=== PATIENT | female | born 1950 | race Caucasian/White ===

== ENCOUNTER 2019-02-14 04:43 | Emergency (ER) | payer MEDICAID, MEDICARE ==
[2019-02-14] MEDS ORDERED: NS 0.9% 1000 ML** 1,000 ML IV ONE (05:06)
[2019-02-14] MEDS ORDERED: Meclizine TAB* 12.5 MG PO ONE (05:07)
--- NOTE | 2019-02-14 05:13 | ED ---
Dizziness - HPI Summary HPI Summary: The pt is a 69 y/o F presenting to [facility] with her and a CC of dizziness , described as room spinning, starting 02/13/19 and worsening at 0300 02/14/19. She stated that she was having dizziness episodes during the day. She woke up at 0300 and felt nauseas. She stated that she sat up and went to the bathroom where she threw up. She states that she has neck pain. She denies any fever, diarrhea, CP, abdominal pain, headaches, diaphoresis, and sore throat. She stated that she felt better after vomiting but stated no aggravating factors. She states that she feels better than when she woke up. She has a pertinent FHx of vertigo on her mothers side. She has a PMHx of a stroke in 2014 that affected the right side of her body and made it weak, resulting in her using a cane and walker outside of her apartment. - History Of Current Complaint Chief Complaint: EDDizziness Stated Complaint: DIZZY PER PT Time Seen by Provider: 02/14/19 04:57 Hx Obtained From: Patient Onset/Duration: Resolved, Gradually - since 02/13/19, worsening at 0300 02/14/19 Timing: Days - 1 Severity Initially: Mild Severity Currently: None Character: Room Spinning Aggravating Factor(s): Nothing Alleviating Factor(s): Other - vomiting Associated Signs And Symptoms: Positive: Negative - diarrhe, sore throat, abdominal pain, headaches, Nausea, Vomiting, Visual Changes - room spinning. Negative: Diarrhea, Diaphoresis, Chest Pain, Fever - Allergies/Home Medications Allergies/Adverse Reactions: Allergies Allergy/AdvReac Type Severity Reaction Status Date / Time MS Codeine [Codeine] Allergy N/V Verified 02/14/19 05:54 MS Propoxyphene [From Darvon] Allergy N/V Verified 02/14/19 05:54 ENVIRONMENTAL Allergy SEASONAL Uncoded 02/14/19 05:54 Home Medications: Home Medications Amlodipine Besylate [Norvasc] 10 mg PO DAILY 02/14/19 [History Confirmed ] Fluoxetine HCl [Prozac] 20 mg PO DAILY 02/14/19 [History Confirmed 02/14/19] Insulin Glargine,Hum.rec.anlog [Lantus Solostar 5x3 ML PENS] 46 units SUBCUT DAILY 02/14/19 [History Confirmed 02/14/19] Losartan Potassium 100 mg PO DAILY 02/14/19 [History Confirmed 02/14/19] Metoprolol Succinate [Toprol Xl] 25 mg PO BID 02/14/19 [History Confirmed ] Oxybutynin Chloride [Ditropan Xl] 10 mg PO DAILY 02/14/19 [History Confirmed ] Sitagliptin Phosphate [Januvia] 100 mg PO DAILY 02/14/19 [History Confirmed ] PMH/Surg Hx/FS Hx/Imm Hx Previously Healthy: Yes Endocrine/Hematology History: Reports: Hx Diabetes - TYPE II- ORAL MEDICATION Denies: Hx Anticoagulant Therapy, Hx Blood Disorders, Hx Blood Transfusions - pt is a Jehovah Witness, Hx Bone Marrow Disease, Hx Systemic Lupus Erythematosus, Hx Sickle Cell Disease, Hx Thyroid Disease, Hx Anemia, Hx Unexplained Bleeding Cardiovascular History: Reports: Hx Hypertension Denies: Hx Aneurysm, Hx Angina, Hx Angioplasty, Hx Auto Implanted Cardiovert Defib, Hx Cardiac Arrest, Hx Cardiomegaly, Hx Congenital Heart Disease, Hx Congestive Heart Failure, Hx Coronary Artery Disease, Hx Deep Vein Thrombosis, Hx Embolism, Hx Hypercholesterolemia, Hx Hypotension, Hx Pacemaker/ICD, Hx Peripheral Vascular Disease, Hx Rheumatic Fever, Hx Syncope, Hx Valvular Heart Disease, Other Cardiovascular Problems/Disorders Respiratory History: Reports: Hx Asthma - SEASONAL ASTHMA, Hx Seasonal Allergies Denies: Hx Chronic Bronchitis, Hx Chronic Obstructive Pulmonary Disease (COPD ), Hx Cystic Fibrosis, Hx Lung Cancer, Hx Pleural Effusion, Hx Pneumonia, Hx Pulmonary Edema, Hx Pulmonary Embolism, Hx Sleep Apnea, Other Respiratory Problems/Disorders GI History: Denies: Hx Cirrhosis, Hx Crohn's Disease, Hx Diverticulosis, Hx Gall Bladder Disease, Hx Gastroesophageal Reflux Disease, Hx Gastrointestinal Bleed, Hx Hiatal Hernia, Hx Irritable Bowel, Hx Jaundice, Hx Obstructive Bowel, Hx Ileostomy, Hx Pyloric Stenosis, Hx Ulcer, Other GI Disorders History: Reports: Other Problems/Disorders - incontinenece bladder Denies: Hx Acute Renal Failure, Hx Benign Prostatic Hyperplasia, Hx Chronic Renal Failure, Hx Dialysis, Hx Kidney Infection, Hx Kidney Stones, Hx Renal Disease Musculoskeletal History: Reports: Hx Back Problems, Other Musculoskeletal History - bilat knee pain, lower back pain Denies: Hx Arthritis, Hx Bursitis, Hx Congenital Bone Abnormalities, Hx Fibromyalgia, Hx Gout, Hx Orthopedic Injury, Hx Osteoporosis, Hx Scoliosis, Hx Tendonitis Sensory History: Reports: Hx Cataracts, Hx Contacts or Glasses Denies: Hx Eye Injury, Hx Eye Prosthesis, Hx Glaucoma, Hx Legally Blind, Hx Macular Degeneration, Hx Vision Problem, Hx Deafness, Hx Hearing Aid, Hx Hearing Problem, Other Sensory Impairments Opthamlomology History: Reports: Hx Cataracts, Hx Contacts or Glasses Denies: Hx Eye Injury, Hx Eye Prosthesis, Hx Glaucoma, Hx Legally Blind, Hx Macular Degeneration, Hx Vision Problem, Other Sensory Impairments Neurological History: Denies: Hx Dementia, Hx Developmental Delay, Hx Headaches, Hx Migraine, Hx Nerve Disease, Hx Seizures, Hx Spinal Cord Injury, Hx Transient Ischemic Attacks (TIA), Other Neuro Impairments/Disorders Psychiatric History: Reports: Hx Depression Denies: Hx Anxiety, Hx Attention Deficit Hyperactivity Disorder, Hx Eating Disorder, Hx Panic Disorder, Hx Post Traumatic Stress Disorder, Hx Inpatient Treatment, Hx Community Mental Health Tx, Hx Schizophrenia, Hx Bipolar Disorder , Hx Suicide Attempt, Hx of Violent Episodes Against Others, Hx Substance Abuse , Other Psychiatric Issues/Disorders - Cancer History Hx Chemotherapy: No Hx Radiation Therapy: No Hx Palliative Cancer Treatment: No - Surgical History Surgery Procedure, Year, and Place: cataract, appendectomy, tonsils & adnoids Hx Anesthesia Reactions: No - Immunization History Immunizations Up to Date: Yes Infectious Disease History: No Infectious Disease History: Denies: Hx Clostridium Difficile, Hx Hepatitis, Hx Human Immunodeficiency Virus (HIV), Hx of Known/Suspected MRSA, Hx Shingles, Hx Tuberculosis, Hx Known/ Suspected VRE, Hx Known/Suspected VRSA, Traveled Outside the [place] in Last 30 Days - Social History Alcohol Use: None Substance Use Type: Reports: None Smoking Status (MU): Never Smoked Tobacco Review of Systems Negative: Fever, Skin Diaphoresis Negative: Sore Throat Negative: Chest Pain Positive: Vomiting, Nausea. Negative: Abdominal Pain, Diarrhea Negative: Headache All Other Systems Reviewed And Are Negative: Yes Physical Exam - Summary Physical Exam Summary: VITAL SIGNS: Reviewed. GENERAL: Patient is a well-developed and nourished female who is lying comfortable in the stretcher. Patient is not in any acute respiratory distress. HEAD AND FACE: No signs of trauma. No ecchymosis, hematomas or skull depressions. No sinus tenderness. EYES: PERRLA, EOMI x 2, No injected conjunctiva, no nystagmus. EARS: Hearing grossly intact. Ear canals and tympanic membranes are within normal limits. MOUTH: Oropharynx within normal limits. NECK: Supple, trachea is midline, no adenopathy, no JVD, no carotid bruit, no c- spine tenderness, neck with full ROM CHEST: Symmetric, no tenderness at palpation LUNGS: Clear to auscultation bilaterally. No wheezing or crackles. CVS: Regular rate and rhythm, S1 and S2 present, no murmurs or gallops appreciated. ABDOMEN: Soft, non-tender. No signs of distention. No rebound no guarding, and no masses palpated. Bowel sounds are normal. EXTREMITIES: FROM in all major joints, no edema, no cyanosis or clubbing. NEURO: Alert and oriented x 3. No acute neurological deficits. Speech is normal and follows commands. Mild weakness over the right side Normal coordination with bilateral finger to nose exam, normal extra ocular muscles SKIN: Dry and warm Triage Information Reviewed: Yes Vital Signs On Initial Exam: Initial Vitals Temp Pulse Resp BP Pulse Ox 98.9 F 71 18 143/90 98 02/14/19 04:47 02/14/19 04:47 02/14/19 04:47 02/14/19 04:47 02/14/19 04:47 Vital Signs Reviewed: Yes Diagnostics - Vital Signs Vital Signs Temp Pulse Resp BP Pulse Ox 02/14/19 04:47 98.9 F 71 18 143/90 98 - Laboratory Result Diagrams: 02/14/19 05:33 02/14/19 05:33 Lab Statement: Any lab studies that have been ordered have been reviewed, and results considered in the medical decision making process. - CT Brain CT CT Interpretation Completed By: Radiologist Summary of CT Findings: No acute findings. Ed physician has reviewed this report. - EKG 0511 Cardiac Rate: NL - 73 BPM EKG Rhythm: Sinus Rhythm ST Segment: Non-Specific - in inferior leads Ectopy: None Summary of EKG Findings: Normal Sinus rhythm of 73 BPM with non-specific ST waves in inferior leads and no ectopy. Interpreted by Dr. Block 02/14/19 0511. Re-Evaluation - Re-Evaluation First Eval Re-Evaluation Time: 06:45 Change: Improved Comment: Pt was able to ambulate with the use of her walker to bed 9 without dizziness or an unsteady gait. She will be discharged home. Dizzy Course/Dx - Course Course Of Treatment: The pt is a 69 y/o F presenting to [facility] with her and a CC of dizziness, described as room spinning, starting 02/13/19 and worsening at 0300 02/14/19. She stated that she was having dizziness episodes during the day. Her PE found that she had mild R sided weakness due to a previous stroke in 2014 and Normal coordination with bilateral finger to nose exam, normal extra ocular muscles. Her EKG showed a normal sinus rhythm of 73 BPM and non-specific ST waves in her inferior leads without ectopy. She was able to ambulate with her walker from her room down the hallway to bed 9 without any complications including loss of balance and dizziness. She received a Brain CT which had no acute findings and also received antivert during her ED course. Her lab values were within acceptable ranges. She will be discharged home with a Dx of vertigo and instructions to follow up with her primary care physician in 2-3 days and to return to the ED with any new or worsening symptoms. - Diagnoses Provider Diagnoses: Vertigo Discharge - Sign-Out/Discharge Documenting (check all that apply): Patient Departure - discharge Patient Received Moderate/Deep Sedation with Procedure: No - Discharge Plan Condition: Stable Disposition: HOME Patient Education Materials: Vertigo (ED) Referrals: Zaira Hankins MD [Primary Care Provider] - 2 Days Additional Instructions: Please follow up with your primary care physician in 2-3 days and return to the Emergency department with any new or worsening symptoms. - Attestation Statements Document Initiated by Scribe: Yes Documenting Scribe: Juan Franco Provider For Whom Stan is Documenting (Include Credential): Cristofer Block MD Scribe Attestation: Juan Rehman, scribed for Cristofer Block MD on 02/14/19 at 0645. Status of Scribe Document: Ready
[2019-02-14 05:48] LABS: ABS Basophils 0.1 10^3/ul (0-0.2); ABS Eosinophils 0.2 10^3/ul (0-0.6); ABS Lymphocytes 2.6 10^3/ul (1.0-4.8); ABS Monocytes 0.9 10^3/ul (0-0.8); ABS Neutrophils 10.9 10^3/ul (1.5-7.7); Eosinophil % 1.1 %; Hematocrit 38 % (35-47); Hemoglobin 12.9 g/dL (12.0-16.0); Mean Corpuscular HGB Conc 34 g/dL (31-36); Mean Corpuscular Hemoglobin 29 pg (27-31); Mean Corpuscular Volume 86 fL (80-97); Mean Platelet Volume 8.1 fL (7.4-10.4); Platelet Count 337 10^3/uL (150-450); Red Blood Count 4.48 10^6 /uL (3.70-4.87); Red Cell Distribution Width 14 % (10-15); White Blood Count 14.7 10^3/uL (3.5-10.8)
[2019-02-14 05:56] LABS: Activated Partial Thrombo Time 36.8 seconds (26.0-38.0); INR 0.82 (0.82-1.09)
[2019-02-14 06:07] LABS: Albumin 3.7 g/dL (3.2-5.2); Albumin/Globulin Ratio 1.3 (1-3); BUN/Creatinine Ratio 35.8 (8-20); Calcium 9.3 mg/dL (8.6-10.3); EGFR African American 105.6 (>60); EGFR Non-African American 87.3 (>60); Globulin 2.9 g/dL (2-4); Magnesium 1.9 mg/dL (1.9-2.7); Potassium 4.2 mmol/L (3.5-5.0); Total Bilirubin 0.5 mg/dL (0.2-1.0); Total Protein 6.6 g/dL (6.4-8.9)
[2019-02-14] MEDS ORDERED: Insulin REGULAR(*) 1 UNITS UNIT IV PUSH ONE (06:23)
[2019-02-14 08:15] VITALS: BP 139/76
== END 2019-02-14 08:14 | disposition home or self-care (01) ==
LOC: ED 04:43
DX: R42 Dizziness and giddiness (principal); R11.2 Nausea with vomiting, unspecified; G31.89 Other specified degenerative diseases of nervous system; I63.89 Other cerebral infarction; E11.9 Type 2 diabetes mellitus without complications; Z79.84 Long term (current) use of oral hypoglycemic drugs; I10 Essential (primary) hypertension; Z88.5 Allergy status to narcotic agent
CPT/HCPCS: 36415; 70450; 80053; 83735; 85025; 85610; 85730; 93005; 96361; 96374; 99284; A9270-GY